=== PATIENT | female | born 2000 | race Caucasian/White ===

== ENCOUNTER 2022-12-03 12:49 | Outpatient (REF) | payer MEDICAID, SELFPAY ==
--- OUTSIDE RECORDS SUMMARY | 2022-12-03 12:54 | XMS_ITS | Continuity of Care Document ---
Author Name Unknown Organization [facility] Address [address] [place] [address] Care Team Providers Care Small Business Director Name Role Phone Ginger Evans Primary Care Physician Encounter [facility] Date(s): 10/11/22 - 10/11/[address] [id number] Encounter Diagnosis Abdominal pain(Discharge Diagnosis) - 10/11/22 Vaginal discharge(Discharge Diagnosis) - 10/11/22 Discharge Disposition: Home or Self Care Attending Physician: Fanny Damico MD Admitting Physician: Fanny Damico MD Allergies, Adverse Reactions, Alerts Substance Reaction Severity Status amoxicillin Hives Moderate Active Tape Mild Active Functional Status 10/11/22 Family Member Travel History No recent t ravel Recent Travel History No recent travel Other exposure to Infectious Disease Non e Medications Albuterol (Eqv-ProAir HFA) 0 Refill(s) Start Date: 10/11/22 Status: Ordered DULoxetine 0 Refill(s) Start Date: 10/11/22 Status: Ordered ondansetron 0 Refill(s) Start Date: 10/11/22 Status: Ordered Results Laboratory List Name Date CBC w/ Diff 10/11/22 Comprehensive Metabolic Panel 10/11/22 Automated Diff 10/11/22 Most recent to oldest [Reference Range]: 1 WBC [5.0-10.0 x10^3/mcL] 9.9 x10^3/mcL (10/11/22 6:17 PM) RBC [4.1-5.3 x10^6/mcL] 4.0 x10^6/mcL *LOW* (10/11/22 6:17 PM) Neutro Auto [40.0-75.0 %] 54.2 % (10/11/22 6:17 PM) Lymph Auto [20.0-50.0 %] 32.5 % (10/11/22 6: PM) Sutter Auto [2.0-15.0 %] 6.1 % (10/11/22 6:17 PM) Basophil Auto [0.0-1.0 %] 0.9 % (10/11/22: PM) BUN [7-18 mg/dL] 10 mg/dL (10/11/22: PM) Glucose Level [74-106 mg/dL] 77 mg/dL (10/11/22: PM) Potassium Level [3.5-5.1 mmol/L] 4.2 mmo l/L (10/11/22 PM) MCV [80.0-96.0] 84.3 (10/11/22: PM) AST [15-37 unit/L] 22 unit/L (10/11/22: PM) ALT [14-59 unit/L] 28 unit/L (10/11/22: PM) MCHC [31.0-35.0 g/dL] 30.2 g/dL *LOW* (10/11/22 PM) Sodium Level [136-145 mmol/L] 140 mmol/L (10/11/22: PM) Hct [37.0-47.0 %] 33.8 % *LOW* (10/11/22 PM) Calcium Level [8.5-10.1 mg/dL] 8.9 mg/dL (10/11/22: PM) Albumin Level [3.4-5.0 g/dL] 3.2 g/dL *LOW* (10/11/22: PM) Protein Total [6.4-8.2 g/dL] 7.5 g/dL (10/11/22: PM) MCH [26.0-32.0 pg] 25.4 pg *LOW* (10/11/22: PM) Neutro Absolute 5.4 x10^3/mcL *NA* (10/11/22:17 PM) Bilirubin Total [0.2-1.0 mg/dL] 0.2 mg/d L (10/11/22: PM) Hgb [12.0-16.0 g/dL] 10.2 g/dL *LOW* (10/11/22 6: PM) Alk Phos [46-146 unit/L] 88 unit/L (10/11/22: PM) Platelets [130-450 x10^3/mcL] 418 x10^3/ mcL (10/11/22:17 PM) CO2 [21-32 mmol/L] 26 mmol/L (10/11/22: PM) eGFR Non-AA [>=60] 87 (10/11/22 PM) eGFR AA [>=60] 87 (10/11/22: PM) Chloride Level [98-107 mmol/L] 105 mmol/ L (10/11/22: PM) RDW-CV [11.7-17.0 %] 14.4 % (10/11/22: PM) Imm Gran Auto [0.0-0.9 %] 0.2 % (10/11/22: PM) Creatinine Level [0.55-1.02 mg/dL] 0.95 mg/dL (10/11/22: PM) Eos, Auto [1.0-6.0 %] 6.1 % *HI* (10/11/22: PM) Vital Signs Most recent to oldest [Reference Range]: 1 Temperature Temporal Artery [36-38 Deg C ] 36.1 Deg C (10/11/22:18 PM) Peripheral Pulse Rate [60-100 bpm] 73 bp m (10/11/22:18 PM) Respiratory Rate [12-24 br/min] 18 br/mi n (10/11/22:18 PM) Blood Pressure [90-140/60-90 mmHg] 126/7 9mmHg (10/11/22 5:18 PM) Weight Dosing 95.00 kg (10/11/22:27 PM) Weight Estimated 95.00 kg (10/11/22:18 PM) Height/Length Dosing 168.000 cm (2/6/23 5:27 PM) Height/Length Estimated 168.000 cm (10/11/22 5:18 PM) Social History Social History Type Response Tobacco Current everyday tob acco user Tobacco Use:. 1-2 cigarettes/day per day. Sex Hospital Discharge Instructions Patient Education 10/11/2022 18:08:14 Abdominal Pain, Adult Abdominal Pain, Adult Pain in the abdomen (abdominal pain) can be caused by many things. Often, abdominal pain is not serious and it gets better with no treatment or by being treated at home. However, sometimes abdominal pain is serious. Your health care provider will ask questions about your medical history and do a physical exam to try to determine the cause of your abdominal pain. Follow these instructions at home: Medicines ??? Take stxz-sft-grpuwsv and prescription medicines only as told by your health care provider. ??? Do not take a laxative unless told by your health care provider. General instructions ??? Watch your condition for any changes. ??? Drink enough fluid to keep your urine pale yellow. ??? Keep all follow-up visits as told by your health care provider. This is important. Contact a health care provider if: ??? Your abdominal pain changes or gets worse. ??? You are not hungry or you lose weight without trying. ??? You are constipated or have diarrhea for more than 2???3 days. ??? You have pain when you urinate or have a bowel movement. ??? Your abdominal pain wakes you up at night. ??? Your pain gets worse with meals, after eating, or with certain foods. ??? You are vomiting and cannot keep anything down. ??? You have a fever. ??? You have blood in your urine. Get help right away if: ??? Your pain does not go away as soon as your health care provider told you to expect. ??? You cannot stop vomiting. ??? Your pain is only in areas of the abdomen, such as the right side or the left lower portion of the abdomen. Pain on the right side could be caused by appendicitis. ??? You have bloody or black stools, or stools that look like tar. ??? You have severe pain, cramping, or bloating in your abdomen. ??? You have signs of dehydration, such as: ??? Dark urine, very little urine, or no urine. ??? Cracked lips. ??? Dry mouth. ??? Sunken eyes. ??? Sleepiness. ??? Weakness. ??? You have trouble breathing or chest pain. Summary ??? Often, abdominal pain is not serious and it gets better with no treatment or by being treated at home. However, sometimes abdominal pain is serious. ??? Watch your condition for any changes. ??? Take ufad-mwu-ppwncbh and prescription medicines only as told by your health care provider. ??? Contact a health care provider if your abdominal pain changes or gets worse. ??? Get help right away if you have severe pain, cramping, or bloating in your abdomen. This information is not intended to replace advice given to you by your health care provider. Make sure you discuss any questions you have with your health care provider. Document Revised: 10/10/2020 Document Reviewed: 12/31/2019 Elsevier Patient Education ?? 2021 [employer]. Follow Up Care 10/11/2022 17:18:29 With:Nichole Land MD Address: [address] [address]- When:1 to 2 weeks Physician Emergency department Note * Fanny Damico MD: PERFORM Event Display: ED Note Physician Authored Date: [id number] CELINE MARK :2000 Age:22 years Sex:Female Visit Date:10/11/2022 Primary Care Physician: Ginger Evans NP Basic Information Time Seen: Fanny Damico MD / 10/11/2022 17:24 Chief Complaint Left sided lower abdominal pain, deiverd baby on 09/17/2022. Intermitten bleeding and yellow discharge with mucus History Of Present Illness: Patient reports that she delivered??baby in [facility] on September 17, 2022??since that time she has had intermittent bleeding??and yellow discharge today is a bleeding day.?? She says sometimes she can bleed??through 4 pads an hour??and then some days she just has clear??yellow mucus.?? Patient states she mostly has lower abdominal pain.?? Patient does report that she and her son have been seen at the [facility].?? Patient states she has not followed up with a local T[employer]ATION ECONOMIST because she does not??know phone number of local TAXATION ECONOMIST.?? No fevers no chills no ear nose or throat pain??patient had a headache earlier today but none currently??patient reports she has a hiatalhernia??she has periodic chest pain that she has had since??she delivered??at times this pain goes down her left arm there has been no change she has tried Tums and Maalox??without relief.?? Patient??is bottlefeeding.?? No urinary symptoms no extremity edema no skin rashes. ??Patient is here with her boyfriend??father. ??Patient does not have transportation except for her boyfriend.?? Patient and her boyfriend live??a couple houses down from the [facility].?? Patient has a history of polycystic ovarian??syndrome??and has had cyst??bilateral??ovaries??in the past. Review of Systems: see hpi for ros Physical Exam Vitals & Measurements T:??36.1?C ??(Temporal Artery)?? HR:??73??(Peripheral)?? RR:??18?? BP:??126/79?? SpO2:??99%?? HT:??168.000??cm?? WT:??95.00??kg??(Estimated)?? Pain Score:??9?? O2 Therapy:??Room air?? General: Alert and oriented, well nourished,?No??acute distress Eye: PER?Normal??conjunctiva,??No??scleral icterus HENT: Normocephalic,??nontraumatic??Normal hearing Lungs: Clear to auscultation,?Non-labored?? respiration Heart:?Normal?? rate,?Regular??rhythm,?No??murmur,?No??gallop,?No??edema Chest: wall excursion wnl no abnormal movements no obvious deformities Abdomen: Soft,??mild lower abdominal tenderness, non-distended,?No??masses Musculoskeletal:?Normal?? range of motion and strength,?No??tenderness,?No??swelling Skin: Skin is warm, dry and pink,?No??rashes,?No??lesions Neurologic: Awake, alert and oriented X4 Psychiatric: Cooperative, appropriate mood and affect Medical Decision Making: For MDM please see under assessment and plan Procedure No Qualifying Data Assessment/Plan 1.??Abdominal pain??R10.9 Physical exam is reassuring??as are labs??this could be bilateral ovarian cysts however think??thismay be some cramping from ??for patient??had an??delivery on September 17, 2022.?? Patient has not had [facility] E[employer]IST follow-up since delivery??spoke with Dr. Land who recoommended that pt call tomorrow to schedule follow up. ??Patient will take Tylenol ibuprofen as needed for pain or discomfort.?Patient??also has [facility] as??primary care and can follow-up with them as well.?? An email has been sent to clinical case coordination??to see if [facility] might [facility]given she does not have a license. Ordered: Discharge Patient, 10/11/22 19:08:00 EST, Home Independently, Constant Indicator ?? 2.??Vaginal discharge??N89.8 This seems like physiological discharge??given it is clear yellow and at times??bleeding on and off??since recent??delivery on September 17, 2022??return precautions have been given??and patient will follow-up with T[facility] E[employer]IST office. Ordered: Discharge Patient, 10/11/22 19:08:00 EST, Home Independently, Constant Indicator ?? Patient Education Abdominal Pain, Adult Follow Up With When Contact Information Nichole Land MD Within 1 to 2 weeks [facility] [address] [place] [address] [address] [place] [address]- Additional Instructions: Medication Reconciliation Unchanged albuterol (Albuterol (Eqv-ProAir HFA)) ?? DULoxetine ?? ondansetron Problem List/Past Medical History Ongoing No qualifying data Historical No qualifying data Allergies amoxicillin??(Hives) Tape Social History Electronic Cigarette/Vaping Electronic Cigarette Use: Never. Substance Use Marijuana Tobacco Current everyday tobacco user Tobacco Use:. 1-2 cigarettes/day per day. Lab Results CBC and Differential?? LATEST RESULTS?? WBC?? 10/11/22 18:17?? 9.9?? RBC?? 10/11/22 18:17?? 4.0 ??Low?? Hgb?? 10/11/22 18:17?? 10.2 ??Low?? Hct?? 10/11/22 18:17?? 33.8 ??Low?? MCV?? 10/11/22 18:17?? 84.3?? MCH?? 10/11/22 18:17?? 25.4 ??Low?? MCHC?? 10/11/22 18:17?? 30.2 ??Low?? RDW-CV?? 10/11/22 18:17?? 14.4?? Platelets?? 10/11/22 18:17?? 418?? Neutro Auto?? 10/11/22 18:17?? 54.2?? Lymph Auto?? 10/11/22 18:17?? 32.5?? Sutter Auto?? 10/11/22 18:17?? 6.1?? Eos, Auto?? 10/11/22 18:17?? 6.1 ??High?? Basophil Auto?? 10/11/22 18:17?? 0.9?? Imm Gran Auto?? 10/11/22 18:17?? 0.2?? Neutro Absolute?? 10/11/22 18:17?? 5.4? Routine Chemistry?? LATEST RESULTS?? Sodium Level?? 10/11/22 18:17?? 140?? Potassium Level?? 10/11/22 18:17?? 4.2?? Chloride Level?? 10/11/22 18:17?? 105?? CO2?? 10/11/22 18:17?? 26?? Alk Phos?? 10/11/22 18:17?? 88?? AST?? 10/11/22 18:17?? 22?? ALT?? 10/11/22 18:17?? 28?? BUN?? 10/11/22 18:17?? 10?? Glucose Level?? 10/11/22 18:17?? 77?? Creatinine Level?? 10/11/22 18:17?? 0.95?? eGFR AA?? 10/11/22 18:17?? 87?? eGFR Non-AA?? 10/11/22 18:17?? 87?? Calcium Level?? 10/11/22 18:17?? 8.9?? Protein Total?? 10/11/22 18:17?? 7.5?? Albumin Level?? 10/11/22 18:17?? 3.2 ??Low?? Bilirubin Total?? 10/11/22 18:17?? 0.2? Electronically Signed on 10/11/22 07:11 PM Fanny Damico MD Emergency department Discharge instructions * Fanny Damico MD: PERFORM Event Display: ED Discharge Information Authored Date: [id number] CELINE MARK :2000 Age:22 years Sex:Female Visit Date:10/11/2022 Primary Care Physician: Ginger Evans BOOSTER STATION OPERATOR Discharge Instructions We would like to thank you for allowing us to assist you with your healthcare needs. The following includes patient education materials and information regarding your injury/illness. Diagnosis from Today's Visit Abdominal pain Vaginal discharge Discharge Vitals Temperature??(Temporal Artery) 97.0 ??F (36.1 ??C) Heart Rate??(Peripheral) 73 Respiratory Rate?? 18 Blood Pressure?? 126/79?? Height?? 66.14 in (168.000 cm) Weight??(Estimated) 209.48 lb (95.00 kg) Allergies amoxicillin??(Hives) Tape What to Do Next Instructions from Your Care Team Call TAXATION E[employer]OMIST office??tomorrow to schedule follow-up.?? If you develop any??bad smell to your discharge??or have worsening??bleeding??vaginally??please call to be seen sooner or return to the emergencydepartment. You Need to Schedule the Following Appointments Follow Up with??Nichole Land MD When:??Within 1 to 2 weeks Where: [address] [place], [place] [id number]- You were treated today on an emergency basis; it may be blount to contact your primary care provider to notify them of your visit today. You may have been referred to your regular doctor or a specialist, please follow up as instructed. If your condition worsens or you can't get in to see the doctor, contact the Emergency Department. Medications What When Instructions Next Dose Unchanged albuterol (Albuterol (Eqv-ProAir HFA)) Unchanged DULoxetine Unchanged ondansetron Education Materials Abdominal Pain, Adult Pain in the abdomen (abdominal pain) can be caused by many things. Often, abdominal pain is not serious and it gets better with no treatment or by being treated at home. However, sometimes abdominal pain is serious. Your health care provider will ask questions about your medical history and do a physical exam to try to determine the cause of your abdominal pain. Follow these instructions at home: Medicines ? Take mkyt-anz-kecvjzl and prescription medicines only as told by your health care provider. ? Do not take a laxative unless told by your health care provider. General instructions ? Watch your condition for any changes. ? Drink enough fluid to keep your urine pale yellow. ? Keep all follow-up visits as told by your health care provider. This is important. Contact a health care provider if: ? Your abdominal pain changes or gets worse. ? You are not hungry or you lose weight without trying. ? You are constipated or have diarrhea for more than 2???3 days. ? You have pain when you urinate or have a bowel movement. ? Your abdominal pain wakes you up at night. ? Your pain gets worse with meals, after eating, or with certain foods. ? You are vomiting and cannot keep anything down. ? You have a fever. ? You have blood in your urine. Get help right away if: ? Your pain does not go away as soon as your health care provider told you to expect. ? You cannot stop vomiting. ? Your pain is only in areas of the abdomen, such as the right side or the left lower portion of the abdomen. Pain on the right side could be caused by appendicitis. ? You have bloody or black stools, or stools that look like tar. ? You have severe pain, cramping, or bloating in your abdomen. ? You have signs of dehydration, such as: ? Dark urine, very little urine, or no urine. ? Cracked lips. ? Dry mouth. ? Sunken eyes. ? Sleepiness. ? Weakness. ? You have trouble breathing or chest pain. Summary ? Often, abdominal pain is not serious and it gets better with no treatment or by being treated at home. However, sometimes abdominal pain is serious. ? Watch your condition for any changes. ? Take gjzv-qii-ulhxwjg and prescription medicines only as told by your health care provider. ? Contact a health care provider if your abdominal pain changes or gets worse. ? Get help right away if you have severe pain, cramping, or bloating in your abdomen. This information is not intended to replace advice given to you by your health care provider. Make sure you discuss any questions you have with your health care provider. Document Revised: 10/10/2020 Document Reviewed: 12/31/2019 [employer] Patient Education ?? 2021 [employer] Tests Performed Lab Test Name Test Result Date/Time WBC 9.9 x10^3/mcL 10/11/2022 18:17 EST RBC 4.0 x10^6/mcL 10/11/2022 18:17 EST Hgb 10.2 g/dL 10/11/2022 18:17 EST Hct 33.8 % 10/11/2022 18:17 EST MCV 84.3 10/11/2022 18:17 EST MCH 25.4 pg 10/11/2022 18:17 EST MCHC 30.2 g/dL 10/11/2022 18:17 EST RDW-CV 14.4 % 10/11/2022 18:17 EST Platelets 418 x10^3/mcL 10/11/2022 18:17 EST Neutro Auto 54.2 % 10/11/2022 18:17 EST Lymph Auto 32.5 % 10/11/2022 18:17 EST Sutter Auto 6.1 % 10/11/2022 18:17 EST Eos, Auto 6.1 % 10/11/2022 18:17 EST Basophil Auto 0.9 % 10/11/2022 18:17 EST Imm Gran Auto 0.2 % 10/11/2022 18:17 EST Neutro Absolute 5.4 x10^3/mcL 10/11/2022 18:17 EST Sodium Level 140 mmol/L 10/11/2022 18:17 EST Potassium Level 4.2 mmol/L 10/11/2022 18:17 EST Chloride Level 105 mmol/L 10/11/2022 18:17 EST CO2 26 mmol/L 10/11/2022 18:17 EST Alk Phos 88 unit/L 10/11/2022 18:17 EST AST 22 unit/L 10/11/2022 18:17 EST ALT 28 unit/L 10/11/2022 18:17 EST BUN 10 mg/dL 10/11/2022 18:17 EST Glucose Level 77 mg/dL 10/11/2022 18:17 EST Creatinine Level 0.95 mg/dL 10/11/2022 18:17 EST eGFR AA 87 10/11/2022 18:17 EST eGFR Non-AA 87 10/11/2022 18:17 EST Calcium Level 8.9 mg/dL 10/11/2022 18:17 EST Protein Total 7.5 g/dL 10/11/2022 18:17 EST Albumin Level 3.2 g/dL 10/11/2022 18:17 EST Bilirubin Total 0.2 mg/dL 10/11/2022 18:17 EST Patient/Bricklayer Helper Signature Patient Name:CELINE MARK I have received this information and my questions have been answered. Patient/Bricklayer Helper Name: Patient/Bricklayer Helper Signature: Relationship to Patient: Witness Name/Signature: Date: Electronically Signed on: 10/11/2022 19:09 ESTSigned by:[facility] Emergency department Note * Cici Collier H: PERFORM Event Display: ED Notes Authored Date: [id number] Patient Care team information Personnel Name: Ginger Evans NP Address: Address: [address] [place] [phone] [phone]
[2022-12-06 14:57] LABS: IgA 327 mg/dL (85-499); Interpretation (See Note); Tissue Transglutaminase IgA <1.2 U/mL (<4.0)
== END 2022-12-03 12:50 | disposition home or self-care (01) ==
LOC: NCHCN 12:49
PROVIDERS: PCP Physician Assistant; Visit Provider Physician Assistant
DX: R19.7 Diarrhea, unspecified (principal); R11.2 Nausea with vomiting, unspecified
CPT/HCPCS: 82784; 83516

== ENCOUNTER 2023-03-30 10:32 | Outpatient (REF) | payer MEDICAID, SELFPAY ==
--- NOTE | 2023-03-30 09:45 | PAPFT_PTH ---
PATIENT: Lynne Woods LOC: [facility]#:[id number] AGE/SX: 23/F ROOM: RE03/30/[address]: Max Evans : 2000 BED: DIS: 03/30/2023 SPEC #: [id number] RECD: 03/31/23 18:35 STATUS: DENNY REJerilyn #: [id number] ALLY: 03/30/23 09:[address]: Ginger Evans DEPT: [facility] Cytology RECD BY: Genet Duran ENTERED: 03/31/23 18:35 SP TYPE: PAPFT OTHR DR: Samara Man Tissues: 1 - CX/ENDOCX FOR PAP SMEARS Procedures: PAP THIN PREP/[facility] Screening Comments: [id number]
[2023-04-01 14:02] LABS: Chlamydia Result Negative (Negative); GC Result Negative (Negative)
== END 2023-03-30 10:33 | disposition home or self-care (01) ==
LOC: NCHCN 10:32
PROVIDERS: PCP Physician Assistant; Visit Provider Nurse Practitioner Family
DX: Z11.51 Encounter for screening for human papillomavirus (HPV) (principal); R10.2 Pelvic and perineal pain
CPT/HCPCS: 87491; 87591; 88142; 87480; 87510; 87660

== ENCOUNTER 2024-02-07 17:07 | Outpatient (REF) | payer MEDICAID, SELFPAY ==
[2024-02-07 18:55] LABS: Bilirubin Negative (Negative); Blood Negative (Negative); Clarity Cloudy (Clear); Glucose Negative (Negative); Ketones Negative (Negative); Leukocyte Esterase Negative (Negative); Nitrite Negative (Negative); Urobilinogen 0.2 mg/dL (Up to 0.2); pH 7.5 (5-8)
== END 2024-02-07 17:08 | disposition home or self-care (01) ==
LOC: NCHCN 17:07
PROVIDERS: PCP Physician Assistant; Visit Provider Nurse Practitioner Family
DX: R10.32 Left lower quadrant pain (principal)
CPT/HCPCS: 81003